=== PATIENT | female | born 1945 | race Caucasian/White ===

== ENCOUNTER 2020-10-07 20:34 | Inpatient (IN) | payer OTHER, MEDICARE ==
[~2020-10-07] VITALS: Ht 157.5 cm; Wt 75.0 kg
[2020-10-07 21:16] LABS: BASOPHILS # (AUTO) 0.1 X10'3 (0-0.2); BASOPHILS % (AUTO) 1.5 % (0-1); EOSINOPHILS % (AUTO) 0.9 % (0-6); HEMATOCRIT 35.5 % (35.0-45.0); LYMPHOCYTES # (AUTO) 0.5 X10'3 (1.1-4.8); LYMPHOCYTES % (AUTO) 11.1 % (21-51); MEAN CORPUSCULAR HEMOGLOBIN 29.2 PG (27.0-31.0); MEAN CORPUSCULAR HGB CONC 33.9 g/dL (33.0-36.5); MEAN CORPUSCULAR VOLUME 86.1 FL (78-98); MONOCYTES # (AUTO) 0.2 X10'3 (0-0.9); MONOCYTES % (AUTO) 3.3 % (2-12); NEUTROPHILS # (AUTO) 3.8 X10'3 (1.8-7.7); NEUTROPHILS % (AUTO) 83.2 % (42-75); PLATELET COUNT 343 X10'3 (140-440); RED BLOOD COUNT 4.12 X10'6 (4.20-5.60); RED CELL DISTRIBUTION WIDTH 14.6 % (11.5-14.5); WHITE BLOOD COUNT 4.6 X10'3 (4.5-11.0)
[2020-10-07] MEDS ORDERED: acetaminophen 325mg tablet PO ONE (21:20)
[2020-10-07] MEDS ORDERED: normal saline 1000ml 1,000 ML IV ONE ×3 (21:25→21:45)
[2020-10-07 21:34] LABS: ALANINE AMINOTRANSFERASE 499 U/L (12-78); ALBUMIN 2.2 G/DL (3.4-5.0); ALBUMIN/GLOBULIN RATIO 0.7 (1.1-1.5); ALKALINE PHOSPHATASE 282 IU/L (46-116); ANION GAP 9 (8-16); ASPARTATE AMINO TRANSFERASE 719 U/L (10-37); BILIRUBIN,TOTAL 1.2 MG/DL (0.1-1.0); BLOOD UREA NITROGEN 35 MG/DL (7-18); BUN/CREATININE RATIO 30.7 (6.6-38.0); CALCIUM 7.4 MG/DL (8.5-10.1); CHLORIDE 92 MMOL/L (99-107); CREATININE 1.14 MG/DL (0.40-0.90); ETHANOL < 0.010 GM/DL (0.0-0.010); GLUCOSE 119 MG/DL (70-104); SODIUM 123 MMOL/L (135-145); TOTAL CARBON DIOXIDE 22.5 MMOL/L (24-32); TOTAL PROTEIN 5.3 G/DL (6.4-8.2); eGFR 47 ML/MIN
[2020-10-07] MEDS ORDERED: iohexol 300mg/ml 100ml inj. ONE (21:49)
[2020-10-07 21:54] LABS: CLARITY,URINE CLEAR (Clear); COLOR,URINE YELLOW (Yellow); GLUCOSE, URINE NEGATIVE (Neg); KETONES,URINE NEGATIVE (Neg); LEUKOCYTE ESTERASE ,URINE NEGATIVE (Neg); NITRITES, URINE NEGATIVE (Neg); OCCULT BLOOD,URINE NEGATIVE (Neg); PH,URINE 5.5 (4.8-8.0); PROTEIN,URINE NEGATIVE (Neg)
[2020-10-07 21:55] LABS: UA COLLECTION TYPE STRAIGHT CATH
[2020-10-07] MEDS ORDERED: metroNIDAZOLE-Flagyl 500mg/NS 100 ML IV STA (21:56)
[2020-10-07] MEDS ORDERED: CefTRIAXone/D5W-Rocephin 1gm 50 ML IV ONE (22:00)
[2020-10-07 22:08] LABS: URINE AMPHETAMINE SCREEN NEGATIVE (Neg); URINE BARBITUATE SCREEN NEGATIVE (Neg); URINE BENZODIAZEPINES SCREEN POSITIVE (Neg); URINE CANNABINOID SCREEN NEGATIVE (Neg); URINE COCAINE SCREEN NEGATIVE (Neg); URINE METHADONE SCREEN NEGATIVE (Neg); URINE OPIATE SCREEN NEGATIVE (Neg); URINE PHENCYCLIDINE SCREEN NEGATIVE (Neg)
[2020-10-07] MEDS ORDERED: thiamine 100mg/ml 2ml inj. IV ONE (22:10)
[2020-10-07 22:13] LABS: LIPASE 245 U/L (73-393)
[2020-10-07] MEDS ORDERED: LIDOcaine 1% 30ml preserv. free vial IJ STA (22:17)
[2020-10-07] MEDS ORDERED: ondansetron/PF 4mg/2ml inj IV PRN (22:35)
[2020-10-07] MEDS ORDERED: morphine 2 MG/ML inj. syringe IV PRN ×2 (22:35)
[2020-10-07] MEDS ORDERED: magnesium hydroxide 30ml (MOM) UD suspension PO PRN (22:35)
[2020-10-07] MEDS ORDERED: acetaminophen 325mg tablet PO PRN (22:35)
[2020-10-07] MEDS ORDERED: mag hydrox/Alum hydrox/simeth 30ml oral suspension PO PRN (22:35)
[2020-10-07] MEDS ORDERED: ampicillin inj 2 GM in normal saline 100ml IV soln 100 ML IV STA (22:49)
[2020-10-07] MEDS ORDERED: acyclovir inj 1,000 MG in normal saline 250ml IV soln 230 ML IV STA (22:49)
[2020-10-07] MEDS ORDERED: SERT100T PO (23:19)
[2020-10-07] MEDS ORDERED: CELE-193 PO (23:19)
[2020-10-07] MEDS ORDERED: LISI-600 PO (23:19)
[2020-10-07 23:50] LABS: GLUCOSE,CSF 64 MG/DL (40-75); TOTAL PROTEIN,CSF 22 MG/DL (30-60)
[2020-10-08 00:06] LABS: APPEARANCE,CSF SL HAZY; CSF SUPERNATANT COLOR COLORLESS; CSF VOLUME 9.5 ML; CSF WBC CT 0 /CU MM (0-5); TUBE# COUNTED 4
[2020-10-08 00:07] LABS: CSF RBC 548 /CU MM (0)
[2020-10-08 03:52] LABS: ALANINE AMINOTRANSFERASE 435 U/L (12-78); ALBUMIN/GLOBULIN RATIO 0.7 (1.1-1.5); ALKALINE PHOSPHATASE 262 IU/L (46-116); ANION GAP 9 (8-16); ASPARTATE AMINO TRANSFERASE 620 U/L (10-37); BILIRUBIN,TOTAL 1.2 MG/DL (0.1-1.0); BLOOD UREA NITROGEN 28 MG/DL (7-18); BUN/CREATININE RATIO 32.6 (6.6-38.0); CHLORIDE 100 MMOL/L (99-107); CREATININE 0.86 MG/DL (0.40-0.90); GLUCOSE 107 MG/DL (70-104); POTASSIUM 3.9 MMOL/L (3.5-5.1); SODIUM 131 MMOL/L (135-145); TOTAL CARBON DIOXIDE 21.9 MMOL/L (24-32); TOTAL PROTEIN 4.9 G/DL (6.4-8.2); eGFR 65 ML/MIN
[2020-10-08] MEDS ORDERED: SERT-153 PO (05:08)
[2020-10-08 05:43] VITALS: BP 110/54
[2020-10-08 06:00] VITALS: BP 108/36
--- NOTE | 2020-10-08 06:17 | NUR ---
Problems reprioritized. Patient report given, questions answered & plan of care reviewed with Solomon WEI.
[2020-10-08] MEDS: folic acid 1mg tablet PO SCH (07:17)
[2020-10-08] MEDS: pantoprazole 40mg Tablet.DR PO SCH ×2 (07:17→21:12)
[2020-10-08] MEDS: multivitamins, therapeutics tablet PO SCH (07:17)
[2020-10-08] MEDS: thiamine 100mg tablet PO SCH ×2 (07:17→21:12)
--- NOTE | 2020-10-08 09:03 | NUR ---
PAGER ID: [phone] MESSAGE: Clarence Iniguez, 16A, admitted for AMS and alcohol withdrawals vitals 108/36 MAP60 HR85, ns running at 100ml/hr, fluid bolus?
[2020-10-08 09:21] LABS: BASOPHILS # (AUTO) 0.1 X10'3 (0-0.2); LYMPHOCYTES # (AUTO) 0.4 X10'3 (1.1-4.8); MEAN PLATELET VOLUME 8.8 FL (7.4-10.4); MONOCYTES # (AUTO) 0.1 X10'3 (0-0.9); NEUTROPHILS # (AUTO) 3.7 X10'3 (1.8-7.7); PLATELET COUNT 367 X10'3 (140-440); RED CELL DISTRIBUTION WIDTH 14.7 % (11.5-14.5); WHITE BLOOD COUNT 4.3 X10'3 (4.5-11.0)
[2020-10-08 09:24] LABS: BASOPHILS % (AUTO) 1.9 % (0-1); EOSINOPHILS % (AUTO) 0.7 % (0-6); HEMATOCRIT 35.2 % (35.0-45.0); LYMPHOCYTES % (AUTO) 8.3 % (21-51); MEAN CORPUSCULAR HEMOGLOBIN 29.4 PG (27.0-31.0); MEAN CORPUSCULAR VOLUME 86.5 FL (78-98); MONOCYTES % (AUTO) 2.7 % (2-12); NEUTROPHILS % (AUTO) 86.4 % (42-75); RED BLOOD COUNT 4.07 X10'6 (4.20-5.60)
[2020-10-08 11:00] VITALS: BP 98/59
--- NOTE | 2020-10-08 12:47 | NUR ---
Rounded with Dr. Rivera, at 1013, SBAR given, EMAR reviewed, orders entered by physician
[2020-10-08] MEDS: normal saline 1000ml 1,000 ML IV SCH ×3 (14:09→21:12)
[2020-10-08 15:00] VITALS: BP 101/50
[2020-10-08 18:00] VITALS: BP 109/54
--- NOTE | 2020-10-08 18:40 | NUR ---
SBAR report given to lieutenant shift supervisor RN KATARZYNA DudleyR reviewed, questions answered.
[2020-10-08 22:00] VITALS: BP 126/69
[2020-10-09 02:00] VITALS: BP 128/63
[2020-10-09] MEDS: normal saline 1000ml 1,000 ML IV SCH ×2 (05:11→09:03)
[2020-10-09 06:00] VITALS: BP 155/79
--- NOTE | 2020-10-09 06:29 | NUR ---
Patient in room U 3014. I have received report from Octavia WEI Traveler and had the opportunity to ask questions and assume patient care.
--- NOTE | 2020-10-09 06:32 | NUR ---
SBAR report given to morning nurse SONDRA RN , EMAR reviewed, questions answered.
[2020-10-09 07:42] LABS: ALANINE AMINOTRANSFERASE 360 U/L (12-78); ALBUMIN 1.9 G/DL (3.4-5.0); ALBUMIN/GLOBULIN RATIO 0.7 (1.1-1.5); ALKALINE PHOSPHATASE 215 IU/L (46-116); ANION GAP 10 (8-16); ASPARTATE AMINO TRANSFERASE 510 U/L (10-37); BLOOD UREA NITROGEN 16 MG/DL (7-18); BUN/CREATININE RATIO 29.6 (6.6-38.0); CALCIUM 7.1 MG/DL (8.5-10.1); CHLORIDE 105 MMOL/L (99-107); CREATININE 0.54 MG/DL (0.40-0.90); GLUCOSE 84 MG/DL (70-104); POTASSIUM 3.9 MMOL/L (3.5-5.1); SODIUM 134 MMOL/L (135-145); TOTAL CARBON DIOXIDE 18.7 MMOL/L (24-32); TOTAL PROTEIN 4.8 G/DL (6.4-8.2); eGFR > 90 ML/MIN
[2020-10-09 07:50] LABS: BASOPHILS # (AUTO) 0.1 X10'3 (0-0.2); EOSINOPHILS # (AUTO) 0.1 X10'3 (0-0.9); HEMOGLOBIN 11.1 g/dl (12.0-16.0); LYMPHOCYTES # (AUTO) 0.6 X10'3 (1.1-4.8); RED BLOOD COUNT 3.83 X10'6 (4.20-5.60)
[2020-10-09 07:52] LABS: BASOPHILS % (AUTO) 3.4 % (0-1); EOSINOPHILS % (AUTO) 1.4 % (0-6); HEMATOCRIT 32.8 % (35.0-45.0); LYMPHOCYTES % (AUTO) 14.7 % (21-51); MEAN CORPUSCULAR HEMOGLOBIN 29.1 PG (27.0-31.0); MEAN CORPUSCULAR VOLUME 85.7 FL (78-98); MEAN PLATELET VOLUME 8.2 FL (7.4-10.4); MONOCYTES # (AUTO) 0.1 X10'3 (0-0.9); MONOCYTES % (AUTO) 3.5 % (2-12); NEUTROPHILS # (AUTO) 3.2 X10'3 (1.8-7.7); PLATELET COUNT 422 X10'3 (140-440); RED CELL DISTRIBUTION WIDTH 14.8 % (11.5-14.5); WHITE BLOOD COUNT 4.1 X10'3 (4.5-11.0)
[2020-10-09] MEDS: multivitamins, therapeutics tablet PO SCH (09:02)
[2020-10-09] MEDS: folic acid 1mg tablet PO SCH (09:02)
[2020-10-09] MEDS: pantoprazole 40mg Tablet.DR PO SCH ×2 (09:02→20:53)
[2020-10-09] MEDS: thiamine 100mg tablet PO SCH ×2 (09:02→20:53)
[2020-10-09 10:54] LABS: TOTAL CELLS COUNTED 100
[2020-10-09 10:55] LABS: PLATELET ESTIMATE NORMAL
[2020-10-09 10:57] LABS: SCHISTOCYTES FEW; SMUDGE CELLS FEW
[2020-10-09 11:00] VITALS: BP 115/74
[2020-10-09 15:00] VITALS: BP 119/80
--- NOTE | 2020-10-09 17:15 | NUR ---
Pt has reported pain to the communication center coordinator with [facility] today, yet when this RN would go in to ask pt if she was having pain and needed any medication near those times, and during rounding, pt has denied pain and need for medication. Pt now states she would like Tylenol for mild generalized discomfort. Will continue to monitor.
[2020-10-09] MEDS: acetaminophen 325mg tablet PO PRN (17:30)
[2020-10-09 18:00] VITALS: BP 126/71
--- NOTE | 2020-10-09 18:17 | NUR ---
Problems reprioritized. Patient report given, questions answered & plan of care reviewed with Octavia WEI Traveler.
--- NOTE | 2020-10-09 21:37 | NUR ---
Patient in room PCU 3014. I have received report from SANJUANA Dudley and had the opportunity to ask questions and assume patient care.
--- NOTE | 2020-10-09 21:39 | NUR ---
report given to SANJUANA Wang. Pt resting on bed quietly . no acute distress at this time
[2020-10-09 22:00] VITALS: BP 138/66
[2020-10-10] MEDS: normal saline 1000ml 1,000 ML IV SCH ×3 (00:35→15:05)
[2020-10-10 02:00] VITALS: BP 122/58
[2020-10-10 06:00] VITALS: BP 119/59
--- NOTE | 2020-10-10 06:25 | NUR ---
Problems reprioritized. Patient report given, questions answered & plan of care reviewed with SANJUANA Marquis.
--- NOTE | 2020-10-10 06:25 | NUR ---
Patient in room PCU 3014. I have received report from Kathleen WEI and had the opportunity to ask questions and assume patient care.
[2020-10-10 06:59] LABS: BASOPHILS # (AUTO) 0.1 X10'3 (0-0.2); EOSINOPHILS # (AUTO) 0.1 X10'3 (0-0.9); LYMPHOCYTES # (AUTO) 0.6 X10'3 (1.1-4.8); MEAN CORPUSCULAR HGB CONC 33.6 g/dL (33.0-36.5); MONOCYTES # (AUTO) 0.1 X10'3 (0-0.9); NEUTROPHILS # (AUTO) 3.1 X10'3 (1.8-7.7)
[2020-10-10 07:03] LABS: BASOPHILS % (AUTO) 3.5 % (0-1); HEMATOCRIT 31.9 % (35.0-45.0); HEMOGLOBIN 10.7 g/dl (12.0-16.0); LYMPHOCYTES % (AUTO) 15.6 % (21-51); MEAN CORPUSCULAR HEMOGLOBIN 29.2 PG (27.0-31.0); MEAN CORPUSCULAR VOLUME 86.8 FL (78-98); MEAN PLATELET VOLUME 7.7 FL (7.4-10.4); MONOCYTES % (AUTO) 3.6 % (2-12); NEUTROPHILS % (AUTO) 75.3 % (42-75); PLATELET COUNT 404 X10'3 (140-440); RED BLOOD COUNT 3.68 X10'6 (4.20-5.60); WHITE BLOOD COUNT 4.1 X10'3 (4.5-11.0)
[2020-10-10 07:49] LABS: ALANINE AMINOTRANSFERASE 296 U/L (12-78); ALBUMIN 1.7 G/DL (3.4-5.0); ALBUMIN/GLOBULIN RATIO 0.6 (1.1-1.5); ALKALINE PHOSPHATASE 214 IU/L (46-116); ANION GAP 9 (8-16); ASPARTATE AMINO TRANSFERASE 403 U/L (10-37); BILIRUBIN,TOTAL 0.9 MG/DL (0.1-1.0); BLOOD UREA NITROGEN 12 MG/DL (7-18); BUN/CREATININE RATIO 25.5 (6.6-38.0); CALCIUM 7.1 MG/DL (8.5-10.1); CHLORIDE 107 MMOL/L (99-107); CREATININE 0.47 MG/DL (0.40-0.90); GLUCOSE 90 MG/DL (70-104); POTASSIUM 3.8 MMOL/L (3.5-5.1); SODIUM 135 MMOL/L (135-145); TOTAL CARBON DIOXIDE 18.9 MMOL/L (24-32); TOTAL PROTEIN 4.5 G/DL (6.4-8.2); eGFR > 90 ML/MIN
[2020-10-10] MEDS: pantoprazole 40mg Tablet.DR PO SCH ×2 (08:43→20:09)
[2020-10-10] MEDS: thiamine 100mg tablet PO SCH ×2 (08:43→20:09)
[2020-10-10] MEDS: multivitamins, therapeutics tablet PO SCH (08:43)
[2020-10-10] MEDS: folic acid 1mg tablet PO SCH (08:43)
[2020-10-10 09:13] LABS: CHOL/HDL RATIO 10.4 (0.00-4.99); CHOLESTEROL 83 MG/DL (0-200); HDL CHOLESTEROL 8 MG/DL (35-60); LDL CHOLESTEROL 46 MG/DL (50-100); TRIGLYCERIDES 108 MG/DL (20-135)
[2020-10-10 11:00] VITALS: BP 126/68
[2020-10-10 15:00] VITALS: BP 118/76
--- NOTE | 2020-10-10 18:30 | NUR ---
Problems reprioritized. Patient report given, questions answered & plan of care reviewed with Pao WEI.
[2020-10-10] MEDS: acetaminophen 325mg tablet PO PRN (20:09)
[2020-10-11] VITALS: BP 118/56
[2020-10-11 07:00] VITALS: BP 117/44
--- NOTE | 2020-10-11 07:21 | NUR ---
Patient in room [facility] 359. I have received report from Payal WEI and had the opportunity to ask questions and assume patient care.
[2020-10-11] MEDS: folic acid 1mg tablet PO SCH (08:01)
[2020-10-11] MEDS: thiamine 100mg tablet PO SCH (08:01)
[2020-10-11] MEDS: multivitamins, therapeutics tablet PO SCH (08:01)
[2020-10-11] MEDS: pantoprazole 40mg Tablet.DR PO SCH (08:02)
[2020-10-11 08:03] LABS: BASOPHILS # (AUTO) 0.2 X10'3 (0-0.2); EOSINOPHILS # (AUTO) 0.1 X10'3 (0-0.9); LYMPHOCYTES # (AUTO) 0.8 X10'3 (1.1-4.8); NEUTROPHILS # (AUTO) 3.9 X10'3 (1.8-7.7); RED CELL DISTRIBUTION WIDTH 15.3 % (11.5-14.5)
[2020-10-11 08:06] LABS: BASOPHILS % (AUTO) 3.4 % (0-1); HEMATOCRIT 35.9 % (35.0-45.0); HEMOGLOBIN 12.1 g/dl (12.0-16.0); LYMPHOCYTES % (AUTO) 15.6 % (21-51); MEAN CORPUSCULAR HEMOGLOBIN 29.3 PG (27.0-31.0); MEAN CORPUSCULAR HGB CONC 33.7 g/dL (33.0-36.5); MEAN CORPUSCULAR VOLUME 86.8 FL (78-98); MEAN PLATELET VOLUME 7.9 FL (7.4-10.4); MONOCYTES # (AUTO) 0.2 X10'3 (0-0.9); PLATELET COUNT 473 X10'3 (140-440); RED BLOOD COUNT 4.13 X10'6 (4.20-5.60); WHITE BLOOD COUNT 5.2 X10'3 (4.5-11.0)
[2020-10-11 08:21] LABS: ALANINE AMINOTRANSFERASE 287 U/L (12-78); ALBUMIN 1.9 G/DL (3.4-5.0); ALBUMIN/GLOBULIN RATIO 0.6 (1.1-1.5); ALKALINE PHOSPHATASE 254 IU/L (46-116); ANION GAP 12 (8-16); ASPARTATE AMINO TRANSFERASE 396 U/L (10-37); BILIRUBIN,TOTAL 0.9 MG/DL (0.1-1.0); BLOOD UREA NITROGEN 9 MG/DL (7-18); BUN/CREATININE RATIO 20.5 (6.6-38.0); CHLORIDE 106 MMOL/L (99-107); CREATININE 0.44 MG/DL (0.40-0.90); GLUCOSE 86 MG/DL (70-104); POTASSIUM 3.8 MMOL/L (3.5-5.1); SODIUM 137 MMOL/L (135-145); eGFR > 90 ML/MIN
[2020-10-11] MEDS ORDERED: folic acid tablet PO (09:57)
[2020-10-11] MEDS ORDERED: thiamine tablet PO (09:57)
[2020-10-11] MEDS ORDERED: MULT-25 PO (09:57)
[2020-10-11] MEDS ORDERED: PANT40TA54 PO (09:57)
[2020-10-11] MEDS: normal saline 1000ml 1,000 ML IV SCH (11:05)
--- NOTE | 2020-10-11 11:08 | NUR ---
Student documentation: I have reviewed interventions, assessments performed and documented by [employer]. NS
--- NOTE | 2020-10-11 11:09 | NUR ---
Student Medication Administration: For this medication-pass time frame, all medication were reviewed, dispensed, administered and documented per hospital policy by KINGSLEY Dobbins [facility].
--- NOTE | 2020-10-11 11:23 | NUR ---
Patient IV stopped due to patient being discharged.
--- NOTE | 2020-10-11 11:26 | NUR ---
Went over Discharge instruction with SANJUANA SINCLAIR and patient. Went over meds to stop and keep taking. Patient getting dressed. IV to be taken out when she goes home. Belongs packed up in belonging bag.
--- NOTE | 2020-10-11 11:30 | NUR ---
Patient had a BM after Assessment was completed. BM soft and small amount. patient was happy that it was not diarrhea anymore. Addendum: 10/11/20 at 1131 by Kumar TOTH Amended: Links added.
[2020-10-11 11:31] VITALS: BP 106/61
--- NOTE | 2020-10-11 12:01 | NUR ---
patient DCed to private vehicle IV taken out on DC. Pt has all belongings and S/O here to pick her up. DC time at 1150 10/12/20
[2020-10-11 15:34] LABS: CSF WEST NILE VIRUS, IGG Positive (Negative); CSF WEST NILE VIRUS, IGM Negative (Negative)
[2020-10-11 15:34] LABS: HBSAG SCREEN Negative (Negative); HEP A AB, IGM Negative (Negative); HEPATITIS C ANTIBODY <0.1 s/co ratio (0.0-0.9)
== END 2020-10-11 11:50 | disposition home or self-care (01) | DRG 872 ==
LOC: ER 20:35 → ED HOLD 22:32 → PCU 3S 10-08 05:05 → SUR 3N 10-10 22:40
PROVIDERS: ADMIT Internal Medicine; ATTEND Family Medicine
DX: A41.9 Sepsis, unspecified organism (principal); E87.1 Hypo-osmolality and hyponatremia; N17.9 Acute kidney failure, unspecified; E86.0 Dehydration; K70.11 Alcoholic hepatitis with ascites; F10.21 Alcohol dependence, in remission; F32.9 Major depressive disorder, single episode, unspecified; K72.90 Hepatic failure, unspecified without coma; Z20.822 Contact with and (suspected) exposure to COVID-19; Z79.899 Other long term (current) drug therapy; Z90.49 Acquired absence of other specified parts of digestive tract
CPT/HCPCS: 36415; 70450; 70551; 71045; 72148; 74177; 80053; 80061; 80074; 80305; 80320; 81003; 82140; 82945; 83605; 83690; 83880; 84145; 84157; 84439; 84443; 84484; 85007; 85025; 85610; 86788; 86789; 87015; 87040; 87070; 87081; 87635; 89051; 93005; 96361; 96365; 96367; 96368; 96375; 97110; 97116; 97161; 97530; 99285; C9803; G0378; J0133; J0290; J0696; J3370; J3411; J3490; J7030; J7050; Q9967